=== PATIENT | male | born 1950 | race African-American/Black ===

== ENCOUNTER 2018-05-29 09:47 | Outpatient (CLI) | payer MEDICARE | END 2018-05-29 09:48 | disposition home or self-care (01) | LOC: BICULT 09:47 | PROVIDERS: ATTEND Family Medicine | DX: F17.210 Nicotine dependence, cigarettes, uncomplicated (principal); I10 Essential (primary) hypertension; R91.1 Solitary pulmonary nodule | CPT/HCPCS: 76775; G0297 ==

== ENCOUNTER 2018-11-15 10:46 | Inpatient (IN) | payer MEDICARE ==
[2018-11-15 11:57] LABS: Bilirubin Moderate (Negative); Blood, Urine Negative (Negative); Clarity CLEAR (Clear); Glucose, Urine (Dipstick) >=1000 mg/dL (Negative); Leukocyte Negative (Negative); Nitrite Negative (Negative); Protein, Urine (Dipstick) Trace mg/dL (Neg-Trace); Specific Gravity, Urine 1.019 (1.002-1.036)
[2018-11-15 12:06] LABS: #Eosinphils 0.1 thou/uL (0.0-0.7); #Lymphocytes 1.3 thou/uL (1.20-3.40); #Monocytes 0.4 thou/uL (0.11-0.59); #Neutrophils 4.1 thou/uL (1.40-6.50); %Basophils 0.5 % (0.0-1.0); %Eosinophils 1.6 % (0.0-10.0); %Lymphocytes 22.2 % (21.0-51.0); %Monocytes 7.1 % (0.0-10.0); %Neutrophils 68.6 % (42.0-75.0); ALT (SGPT) 7 U/L (8-55); AST (SGOT) 11 U/L (5-34); Albumin 3.9 g/dL (3.4-4.8); Alkaline Phosphatase 95 U/L (40-150); Anion Gap 19 mmol/L (10-20); Bilirubin, Total 0.9 mg/dL (0.2-1.2); CK (CPK) 77 U/L (30-200); Calc. Creatinine Clearance 0 mL/min (70-130); Carbon Dioxide 28 mmol/L (23-31); Estimated GFR-MDRD 13; Globulin 3.5 g/dL (2.4-3.5); Glucose 433 mg/dL (80-115); Hemoglobin 14.3 g/dL (14.0-18.0); Lipase 124 U/L (8-78); Mean Corpuscular HGB CONC 31.4 g/dL (32.0-36.0); Mean Corpuscular Hemoglobin 26.6 pg (27.0-31.0); Mean Corpuscular Volume 84.8 fL (78.0-98.0); Mean Platelet Volume 12.5 fL (7.4-10.4); Platelet Count 161 thou/uL (130-400); Protein, Total 7.4 g/dL (5.8-8.1); RBC Distribution Width 13.5 % (11.5-14.5); Red Blood Cell (RBC) Count 5.39 mill/uL (4.70-6.10); White Blood Cell (WBC) Count 5.9 thou/uL (4.8-10.8)
[2018-11-15 12:10] LABS: Hemoglobin A1c 21.2 % (4.0-6.0)
[2018-11-15 12:57] LABS: BUN (Urea Nitrogen) 85 mg/dL (8.4-25.7); Chloride 89 mmol/L (98-107); Sodium 132 mmol/L (136-145)
[2018-11-15] MEDS ORDERED: Insulin Regular 300 UNITS/3 ML VIAL ONE (13:10)
[2018-11-15] MEDS ORDERED: Dextrose 50% Abboject 50 ML SYRINGE SLOW IVP PRN (13:27)
[2018-11-15] MEDS ORDERED: Dextrose 5% in Water 1,000 ML IV PRN (13:27)
[2018-11-15] MEDS ORDERED: Acetaminophen 650 MG Suppository PR PRN (13:27)
[2018-11-15] MEDS ORDERED: Acetaminophen 325 MG TAB PO PRN (13:27)
--- NOTE | 2018-11-15 13:50 | RAD ---
UPRIGHT PORTABLE CHEST ONE VIEW: HISTORY: A 68-year-old male with a history of hyperglycemia. COMPARISON: 06/10/2015 FINDINGS: Monitor leads overly the chest. Heart size is within normal limits. Lungs are clear. No confluent pneumonia, overt edema, or pleural effusion. IMPRESSION: 1. No acute intrathoracic disease. 2. Stable from prior study. POS: [facility]
--- NOTE | 2018-11-15 13:53 | PDOC.FPRHP ---
- History of Present Illness Chief Complaint: abnormal lab values History of Present Illness: This is a 68 yo AA male presenting to the ED due to abnormal renal function results done at [facility] yesterday. This is a patient of Dr. Thomas. Patient states that he has been feeling well overall. He notes that he has been dizzy the last 1-2 days. He states when he gets up from sitting to standing he gets dizzy. It only lasts a few seconds at a time and then resolves. The patient also endorses increased frequency of urination, especially at night. Patient states he has been taking his medication as instructed but has not been checking his blood sugar regularly. Patient also states he has had a dry mouth sensation the last couple days. Patient endorses drinking only Aron-Aid and has not been drinking water regularly. Patient denies abdominal pain, chest pain, vision changes, NVD, or LE swelling. ED Course: 3L NS given, 16 units insulin - Allergies/Adverse Reactions Allergies Allergy/AdvReac Type Severity Reaction Status Date / Time codeine Allergy Verified 07/17/13 17:53 - Home Medications Medication Instructions Recorded Confirmed Type Amlodipine [Norvasc] 10 mg PO DAILY 07/19/13 11/15/18 History Aspirin [Aspirin Chewable] 81 mg PO DAILY 07/19/13 11/15/18 History Atenolol [Tenormin] 50 mg PO DAILY 11/15/18 11/15/18 History Atorvastatin Calcium 80 mg PO 11/15/18 History Lisinopril/Hydrochlorothiazide 1 tablet PO DAILY 11/15/18 11/15/18 History [Lisinopril-Hctz 20-25 mg Tab] - History PMHx: DMII, HLD, HTN PSHx: left hand and cheek surgery FHx: mother - DM, HTN; father - HTN; brother - heart issues Social: tobacco use - 1pack/week X 40 yrs, occasional alcohol use, denies drug use - Review of Systems General: denies: fever/chills, weight/appetite/sleep changes, night sweats, fatigue Eyes: denies: eye pain, vision changes ENT: denies: nasal congestion, rhinorrhea Respiratory: denies: cough, congestion, shortness of breath Cardiovascular: denies: chest pain, palpitation, edema Gastrointestinal: denies: nausea, vomiting, diarrhea, constipation, abdominal pain Genitourinary: reports: polyuria. denies: dysuria Skin: denies: rashes Musculoskeletal: denies: pain, tenderness, stiffness, swelling, arthritis/ arthralgias Neurological: reports: other (dizziness). denies: syncope, seizure, weakness - Vital signs BP: initially 79/48, now 109/61 HR: 47 RR: 15 Tmax: 98.5 Pox: 94% on RA Wt: 95.5kg - Physical Exam Constitutional: NAD, awake, alert and oriented, well developed HEENT: normocephalic and atraumatic, PERRLA, EOMI, grossly normal vision -HEENT: poor dentition, MM Dry Neck: supple, FROM, trachea midline, no LAD, no JVD Chest: no-tender to palpation, no lesions Heart: RRR, normal S1/S2, no murmurs/rubs/gallops, pulses present Lungs: CTAB, no respiratory distress, good air movement, no wheezing Abdomen: soft, non-tender, bowel sounds present, no masses/distention, no hernias Musculoskeletal: normal structure Neurological: no focal deficit Skin: no rash/lesions, capillary refill <2 seconds, no jaundice Psychiatric: normal mood and affect Additional comment: ZAID: enlarged prostate, no nodules, feces in rectal vault FMR H&P: Results - Labs Result Diagrams: 11/15/18 11:25 11/15/18 11:25 Lab results: WBC 5.9 thou/uL (4.8-10.8) 11/15/18 11:25 Hgb 14.3 g/dL (14.0-18.0) 11/15/18 11:25 Hct 45.7 % (42.0-52.0) 11/15/18 11:25 MCV 84.8 fL (78.0-98.0) 11/15/18 11:25 Plt Count 161 thou/uL (130-400) 11/15/18 11:25 Neutrophils % 68.6 % (42.0-75.0) 11/15/18 11:25 Sodium 132 mmol/L (136-145) L 11/15/18 11:25 Potassium 4.0 mmol/L (3.5-5.1) 11/15/18 11:25 Chloride 89 mmol/L (98-107) L 11/15/18 11:25 Carbon Dioxide 28 mmol/L (23-31) 11/15/18 11:25 BUN 85 mg/dL (8.4-25.7) H 11/15/18 11:25 Creatinine 5.51 mg/dL (0.7-1.3) H 11/15/18 11:25 Glucose 433 mg/dL (80-115) H 11/15/18 11:25 Calcium 10.0 mg/dL (7.8-10.44) 11/15/18 11:25 Total Bilirubin 0.9 mg/dL (0.2-1.2) 11/15/18 11:25 AST 11 U/L (5-34) 11/15/18 11:25 ALT 7 U/L (8-55) L 11/15/18 11:25 Alkaline Phosphatase 95 U/L (40-150) 11/15/18 11:25 Creatine Kinase 77 U/L (30-200) 11/15/18 11:25 C-Reactive Protein 1.00 mg/dL (= or < 0.5) H 11/15/18 11:25 Serum Total Protein 7.4 g/dL (5.8-8.1) 11/15/18 11:25 Albumin 3.9 g/dL (3.4-4.8) 11/15/18 11:25 Lipase 124 U/L (8-78) H 11/15/18 11:25 Urine Ketones Trace mg/dL (Negative) H 11/15/18 11:33 Urine Blood Negative (Negative) 11/15/18 11:33 Urine Nitrite Negative (Negative) 11/15/18 11:33 Ur Leukocyte Esterase Negative (Negative) 11/15/18 11:33 - EKG Interpretation EKG: sinus bradycardia - Radiology Interpretation Chest x-ray Status: report reviewed by me (no acute cardiopulm process) FMR H&P: A/P - Problem List (1) Hyperglycemia Current Visit: Yes Status: Acute Code(s): R73.9 - HYPERGLYCEMIA, UNSPECIFIED (2) Acute kidney injury Current Visit: Yes Status: Acute Code(s): N17.9 - ACUTE KIDNEY FAILURE, UNSPECIFIED (3) HTN (hypertension) Current Visit: Yes Status: Acute Code(s): I10 - ESSENTIAL (PRIMARY) HYPERTENSION (4) HLD (hyperlipidemia) Current Visit: Yes Status: Acute Code(s): E78.5 - HYPERLIPIDEMIA, UNSPECIFIED (5) Tobacco use Current Visit: Yes Status: Acute Code(s): Z72.0 - TOBACCO USE (6) Sinus bradycardia Current Visit: Yes Status: Acute Code(s): R00.1 - BRADYCARDIA, UNSPECIFIED - Plan Hyperglycemia, suspect HHS - Will obtain VBG - Anion gap 15; less than 16 so not in DKA, HHS suspected - will start insulin drip as patient's glucose did not go down after 10 units of insulin in the ED - Insulin ggt until below 250, then plan to start 70/30 here as that is what he will go home on. Start 30 in am and 15 in pm. - SSI prn when off of drip - glucose 503, will continue to monitor w/ accucheck q1hr - Diabetes education consulted - patient given 3 L boluses and will start mIVF DMII - A1C: 21.2 - Per records - in 04/2018: patient had A1C of 7.4 - see plan above Sinus Bradycardia - HR 47 in the ED, asymptomatic - EKG showed sinus bradycardia, no cardio consult at this time - Will continue to monitor - Hold beta eder HTN - hold beta eder, lisinopril/HCTZ - Will continue to monitor BP HLD - continue home meds Tobacco use - Smoking cessation counseling - nicotine patch DISPO: admit to medical, inpt CODE: FULL Case discussed with Dr. Abrams FMR H&P: Upper Level - Pertinent history 68 yo M here after being called by PCP and told to report to ED. He was seen yesterday in clinic and a random glucose was 400. A BMP was drawn which found a Cr over 5 up from less than 2.0 in March, thus he was told to come into the ER for further work up. A1c in April was 7.4 today in the ED it is 21.2. He noted that over the past few weeks urinary output has increased significantly. He also complains of increased thirst. His main PO liquid is aron aid which he has greatly increased his intake of over the past few weeks. He does not check his glucose at home, but states that he is compliant with his glipizide. - Pertinent findings ROS General: denies fever or chills CV: denies CP Resp: denies SOB Abd: denies abdominal pain : complains of increased UOP See internet marketing intern note for full ROS Laboratory Tests 11/15/18 11/15/18 11/15/18 11:25 11:25 11:25 Sodium 132 L Potassium 4.0 Chloride 89 L Carbon Dioxide 28 BUN 85 H Creatinine 5.51 H Estimated GFR (MDRD) 13 Glucose 433 H POC Glucose Hemoglobin A1c 21.2 H B-Hydroxybutyrate 2.05 H 11/15/18 13:03 Sodium Potassium Chloride Carbon Dioxide BUN Creatinine Estimated GFR (MDRD) Glucose POC Glucose 503 H Hemoglobin A1c B-Hydroxybutyrate PE General AO& x3 CV RRR no murmur Resp CTA bl Abd non tender Extremities no edema. pulses full and equal - Plan Date/Time: 11/15/18 1352 I, Felipe Hampton DO, have evaluated this patient and agree with findings/plan as outlined by internet marketing intern resident. Pertinent changes/additions are listed here. 1. Suspected HHS - s/p 2L NS bolus in ED. Will bolus 1 more then start IVF at maintenance - serum osm pending - Insulin ggt until below 250, then plan to start 70/30 here as that is what he will go home on. Start 30 in am and 15 in pm. - SSI prn when off of drip - low carb diet - Accucheck q1 until below 250 then ACHS - DM education - admit to medical floor 2. DM2 - as above 3. Sinus bradycardia - hold beta eder, currently asymptomatic - no block on EKG 4. HTN - home meds 5. HLD - home statin Dispo: stable. It will likely take 48-72 hours to control glucose and set a insulin regimen. Addendum - Attending - Attending Attestation Date/Time: 11/15/18 0131 I personally evaluated the patient and discussed the management with Dr. Wynne I agree with the History, Examination, Assessment and Plan documented above with any addition or exceptions noted below- 68 yo male with h/o type 2 DM, HTN , HLD sent to ER due to abnormal labs. Found to be hyperglycemia with YH=811 and Cr=5.19. Patient endorses polyuria, polydipsia. Denies any CP, SOB, abd pain , N/V. PMH/PSH/Meds/All reviewed and agree with resident's documentation. Afebrile VSS. Exam repeated by me and agree with resident's findings. Labs: WBC= 5.9, H/H=14.3/45.7, Dcy=509, Ct=355, K=4.0, Cl=89, CO2=28, BUN/Cr=85/5.51, gluc= 433, AST/ALT=11/7, serum ketone=2.05, ErzZ7t=46.2, CRP=1.0. EKG- sinus bradycardia. A/P: 1) HHS- Admit to IMCU; continue insulin drip and q1 hour accuchecks. 2) JORY - continue IV hydration. Monitor electrolytes. 3) Urinary frequency - enlarged prostate; consider flomax as outpatient. 4) Hypotension- responding to fluid bolus. Continue to monitor. 5) Bradycardia- hold beta eder.
[2018-11-15] MEDS ORDERED: Lactated Ringer's 1,000 ML IV SCH (14:15)
[2018-11-15] MEDS ORDERED: Dextrose 5 %-0.45 % NaCl 1,000 ML IV PRN (15:10)
[2018-11-15] MEDS ORDERED: CCU Electrolyte Replacement 1 EACH IVPB ONE (15:10)
[2018-11-15] MEDS ORDERED: NS 0.9% w/ 20 MEQ KCL 1,000 ML IV PRN ×2 (15:10)
[2018-11-15] MEDS ORDERED: D5 1/2 NS w/20 mEq KCL 1,000 ML IV PRN (15:10)
[2018-11-15] MEDS ORDERED: Sodium Chloride 0.9% 1,000 ML IV PRN ×4 (15:10)
[2018-11-15] MEDS ORDERED: Potassium Chloride 40 MEQ in Premix Bag 1 BAG IVPB PRN (15:51)
[2018-11-15] MEDS ORDERED: Potassium Phosphate 12 MMOL in Sodium Chloride 0.9% 250 ML 250 ML IV PRN (15:51)
[2018-11-15] MEDS ORDERED: Magnesium 2 GM/NS 0.9% 100 ML 2 GM in Premix Bag 1 BAG IVPB PRN (15:51)
[2018-11-15] MEDS ORDERED: Potassium Chloride 40 MEQ in Sodium Chloride 0.9% 250 ML 250 ML IVPB PRN (15:51)
[2018-11-15] MEDS ORDERED: Potassium Chloride 20 MEQ TAB PO PRN (15:51)
[2018-11-15] MEDS ORDERED: Magnesium Oxide 400 MG TAB PO PRN ×2 (15:51)
[2018-11-15] MEDS ORDERED: Potassium Phosphate 15 MMOL in Sodium Chloride 0.9% 250 ML 250 ML IV PRN (15:51)
[2018-11-15] MEDS ORDERED: CCU ELECTROLYTE REPLACEMENT PROTOCOL FS PRN (15:51)
[2018-11-15] MEDS ORDERED: Potassium Phosphate 9 MMOL in Sodium Chloride 0.9% 100 ML IVPB PRN (15:51)
[2018-11-15 18:34] VITALS: BMI 27.6
[2018-11-15 19:55] LABS: Anion Gap 17 mmol/L (10-20); BUN (Urea Nitrogen) 72 mg/dL (8.4-25.7); Calc. Creatinine Clearance 20 mL/min (70-130); Calcium 9.3 mg/dL (7.8-10.44); Carbon Dioxide 27 mmol/L (23-31); Chloride 95 mmol/L (98-107); Estimated GFR-MDRD 15; Glucose 330 mg/dL (80-115); Potassium 3.6 mmol/L (3.5-5.1); Sodium 135 mmol/L (136-145)
[2018-11-15] MEDS: Nicotine 21 MG PATCH TD SCH (20:46)
[2018-11-15] MEDS ORDERED: Insulin NPH/Reg Insulin Hm 300 UNITS/3 ML VIAL SC SCH ×2 (21:00→21:15)
[2018-11-15] MEDS: Potassium Chloride 20 MEQ in Lactated Ringer's 1,000 ML IV SCH (21:21)
[2018-11-15 23:31] LABS: Anion Gap 13 mmol/L (10-20); BUN (Urea Nitrogen) 69 mg/dL (8.4-25.7); Calc. Creatinine Clearance 23 mL/min (70-130); Calcium 9.5 mg/dL (7.8-10.44); Carbon Dioxide 29 mmol/L (23-31); Chloride 97 mmol/L (98-107); Estimated GFR-MDRD 17; Glucose 84 mg/dL (80-115); Potassium 3.4 mmol/L (3.5-5.1); Sodium 136 mmol/L (136-145)
[2018-11-16] MEDS: Potassium Chloride 20 MEQ in Lactated Ringer's 1,000 ML IV SCH ×2 (05:15→10:20)
[2018-11-16 05:38] LABS: Band 1 % (5-11); Hemoglobin 12.7 g/dL (14.0-18.0); Hypochromia SLIGHT = 6-15 cells (100X) (0-5/hpf); Lymphocytes 21 % (21-51); MDiff Complete? YES; Mean Corpuscular HGB CONC 32.3 g/dL (32.0-36.0); Mean Corpuscular Hemoglobin 27.3 pg (27.0-31.0); Mean Corpuscular Volume 84.4 fL (78.0-98.0); Mean Platelet Volume 13.1 fL (7.4-10.4); Monocytes 3 % (0-10); Neutrophil 75 % (42-75); PLT Morphology Comment Appears Adequate; Platelet Count 136 thou/uL (130-400); RBC Distribution Width 13.3 % (11.5-14.5); Red Blood Cell (RBC) Count 4.66 mill/uL (4.70-6.10); White Blood Cell (WBC) Count 6.3 thou/uL (4.8-10.8)
[2018-11-16 05:41] LABS: Anion Gap 16 mmol/L (10-20); BUN (Urea Nitrogen) 65 mg/dL (8.4-25.7); Calc. Creatinine Clearance 25 mL/min (70-130); Calcium 9.5 mg/dL (7.8-10.44); Carbon Dioxide 27 mmol/L (23-31); Chloride 99 mmol/L (98-107); Estimated GFR-MDRD 19; Glucose 115 mg/dL (80-115); Potassium 3.8 mmol/L (3.5-5.1); Sodium 138 mmol/L (136-145)
--- NOTE | 2018-11-16 06:10 | PDOC.FM ---
- Subjective Subjective: No events overnight. Patient states he feels well this morning. No complaints or concerns. Patient tolerated his diet well. - Objective Vital Signs & Weight: Vital Signs (12 hours) Temp Pulse Resp BP Pulse Ox 11/16/18 04:00 97.0 F L 42 L 12 94/57 L 98 11/16/18 00:00 97.6 F 44 L 14 97/52 L 98 11/15/18 20:00 98 11/15/18 19:40 97.9 F 54 L 12 112/59 L 98 Weight Weight 94.943 kg I&O: 11/14/18 11/15/18 11/16/18 06:59 06:59 06:59 Intake Total 1900 Output Total 1360 Balance 540 Result Diagrams: 11/16/18 04:47 11/16/18 04:47 Phys Exam - Physical Examination Constitutional: NAD HEENT: PERRLA, moist MMs, sclera anicteric Neck: no JVD, supple, full ROM Respiratory: clear to auscultation bilateral Cardiovascular: RRR, no significant murmur, no rub Gastrointestinal: soft, non-tender, no distention, positive bowel sounds Musculoskeletal: no edema Neurological: non-focal Psychiatric: normal affect, A&O x 3 Skin: no rash Dx/Plan (1) Hyperglycemia Code(s): R73.9 - HYPERGLYCEMIA, UNSPECIFIED Status: Acute (2) Acute kidney injury Code(s): N17.9 - ACUTE KIDNEY FAILURE, UNSPECIFIED Status: Acute (3) HTN (hypertension) Code(s): I10 - ESSENTIAL (PRIMARY) HYPERTENSION Status: Acute (4) HLD (hyperlipidemia) Code(s): E78.5 - HYPERLIPIDEMIA, UNSPECIFIED Status: Acute (5) Tobacco use Code(s): Z72.0 - TOBACCO USE Status: Acute (6) Sinus bradycardia Code(s): R00.1 - BRADYCARDIA, UNSPECIFIED Status: Acute - Plan Plan: Hyperglycemia, suspect HHS - Anion gap 15; less than 16 so not in DKA, HHS suspected - glucose 503-> 122 - will continue to monitor; will start insulin 70/30. Will start 30 in AM and 15 in PM; will adjust as needed - aggressive SSI - Diabetes education consulted - continue mIVF JORY - BUN/Cr on admission: 85/5.51 - 12/28: BUN/Cr: 65/3.81 - continue mIVF - Will obtain urine studies and cx; will consider renal US and consulting nephrology is no improvement DMII - A1C: 21.2 - Per records - in 04/2018: patient had A1C of 7.4 - see plan above Sinus Bradycardia - HR 47 in the ED, asymptomatic - EKG showed sinus bradycardia, no cardio consult at this time - Will continue to monitor - Hold beta eder HTN - hold beta eder, lisinopril/HCTZ - Will continue to monitor BP HLD - continue home meds Tobacco use - Smoking cessation counseling - nicotine patch DISPO: continue to monitor glucose; likely discharge in 1-2 days CODE: FULL Addendum - Attending - Attending Attestation Date/Time: 11/16/18 8077 I personally evaluated the patient and discussed the management with Dr. Wynne I agree with the History, Examination, Assessment and Plan documented above with any addition or exceptions noted below- Patient without complaints. Afebrile VSS. A/P: 1) HHS- resolved; off insulin drip and started on SQ insulin. Diabetic education today. Transfer to floor. 2) JORY- improving; continue IVF; recheck in AM. 3) Bradycardia- asymptomatic; continue to hold beta eder.
[2018-11-16 08:54] LABS: Magnesium 2.2 mg/dL (1.6-2.6); Phosphorus 2.7 mg/dL (2.3-4.7)
[2018-11-16] MEDS ORDERED: Insulin NPH/Reg Insulin Hm 300 UNITS/3 ML VIAL SC SCH (09:00)
[2018-11-16] MEDS: Insulin NPH/Reg Insulin Hm 300 UNITS/3 ML VIAL SC SCH ×2 (10:11→20:09)
[2018-11-16] MEDS: Heparin 5,000 UNITS/ML VIAL SC SCH ×3 (10:15→20:10)
[2018-11-16 10:42] LABS: Creatinine, Urine 215.2 mg/dL (63-166)
[2018-11-16] MEDS ORDERED: Sodium Chloride 0.9% 1,000 ML IV SCH (10:45)
[2018-11-16] MEDS: Furosemide 20 MG/2 ML VIAL SLOW IVP SCH ×2 (10:52→11:08)
[2018-11-16] MEDS: HumaLOG 300 UNITS/3 ML VIAL SC PRN ×2 (11:44→17:13)
--- NOTE | 2018-11-16 13:48 | ULT ---
BILATERAL RENAL ULTRASOUND COMPLETE: History: 68-year-old male with history of worsening renal function. FINDINGS: Right kidney measures 11.2 x 4.6 x 4.3 cm. The left kidney is a pelvic kidney, low lying, measuring 9 .5 x 4.6 x 3.8 cm. No evidence for renal hydronephrosis. Both renal cortices appear to be somewhat di ffusely echogenic, possible nonspecific chronic renal disease. Unremarkable appearing bladder. No per inephric process. IMPRESSION: Increased diffuse renal cortical echogenicity evidence for nonspecific chronic renal disease. No rayna l hydronephrosis. POS: [facility]
[2018-11-16] MEDS: Nicotine 21 MG PATCH TD SCH (20:09)
--- NOTE | 2018-11-17 06:14 | PDOC.FM ---
- Subjective Subjective: No events overnight. Patient reports feeling well this morning. Patient has been tolerating PO well. Patient talked with diabetes education yesterday and acknowledges understanding. States he is going to perform his own accuchecks and administer insulin today as he is ready to go home. - Objective Vital Signs & Weight: Vital Signs (12 hours) Temp Pulse Resp BP Pulse Ox 11/16/18 20:00 98.6 F 49 L 16 99/60 92 L Weight Weight 95.164 kg I&O: 11/15/18 11/16/18 11/17/18 06:59 06:59 06:59 Intake Total 2180 Output Total 1760 450 Balance 420 -450 Result Diagrams: 11/17/18 07:24 11/17/18 07:24 Phys Exam - Physical Examination Constitutional: NAD HEENT: PERRLA, moist MMs, sclera anicteric Neck: no JVD, supple, full ROM Respiratory: clear to auscultation bilateral Cardiovascular: RRR, no significant murmur, no rub Gastrointestinal: soft, non-tender, no distention, positive bowel sounds Musculoskeletal: no edema Neurological: non-focal Psychiatric: normal affect Skin: no rash Dx/Plan (1) Hyperglycemia Code(s): R73.9 - HYPERGLYCEMIA, UNSPECIFIED Status: Acute (2) Acute kidney injury Code(s): N17.9 - ACUTE KIDNEY FAILURE, UNSPECIFIED Status: Acute (3) HTN (hypertension) Code(s): I10 - ESSENTIAL (PRIMARY) HYPERTENSION Status: Acute (4) HLD (hyperlipidemia) Code(s): E78.5 - HYPERLIPIDEMIA, UNSPECIFIED Status: Acute (5) Tobacco use Code(s): Z72.0 - TOBACCO USE Status: Acute (6) Sinus bradycardia Code(s): R00.1 - BRADYCARDIA, UNSPECIFIED Status: Acute - Plan Plan: Hyperglycemia, suspect HHS - Anion gap 15 on admission, ketones present, elevated BHB - glucose 503 on admission. Glucose now ranging 89-215 over last 24 hours - will continue to monitor; started insulin 70/30 on 11/16. 30 in AM and 15 in PM ; 3 units SS - will keep 70/30 dosage for now and will adjust as necessary. Will make sure patient administers his own insulin and does his own accuchecks throughout the day today in preparation for discharge. - aggressive SSI - Diabetes education given to patient on 11/16 JORY - BUN/Cr on admission: 85/5.51 - 11/16: BUN/Cr: 65/3.81 - continue mIVF - Will obtain urine studies and cx; will consider renal US and consulting nephrology is no improvement DMII - A1C: 21.2 - Per records - in 04/2018: patient had A1C of 7.4 - see plan above Sinus Bradycardia - HR in upper 40s, remains asymptomatic - EKG showed sinus bradycardia, no cardio consult at this time - Will continue to monitor - Hold beta eder HTN - hold beta eder, lisinopril/HCTZ - Will continue to monitor BP HLD - continue home meds Tobacco use - Smoking cessation counseling - nicotine patch DISPO: continue to monitor glucose; likely discharge in 1-2 days CODE: FULL Addendum - Attending - Attending Attestation Date/Time: 11/17/18 4141 I personally evaluated the patient and discussed the management with Dr. Wynne I agree with the History, Examination, Assessment and Plan documented above with any addition or exceptions noted below.Continue IV fluid replacement and maximize inpatient diabetic educational opportunities for self injection. Discussed care plan with patient and sibling. Trend BMP for continued improvement RFT.
[2018-11-17 08:11] LABS: #Eosinphils 0.1 thou/uL (0.0-0.7); #Lymphocytes 1.3 thou/uL (1.20-3.40); #Monocytes 0.5 thou/uL (0.11-0.59); #Neutrophils 3.1 thou/uL (1.40-6.50); %Basophils 0.7 % (0.0-1.0); %Eosinophils 1.5 % (0.0-10.0); %Lymphocytes 26.2 % (21.0-51.0); %Monocytes 10.1 % (0.0-10.0); %Neutrophils 61.4 % (42.0-75.0); Hemoglobin 12.4 g/dL (14.0-18.0); Mean Corpuscular HGB CONC 32.1 g/dL (32.0-36.0); Mean Corpuscular Hemoglobin 27.3 pg (27.0-31.0); Mean Corpuscular Volume 85.1 fL (78.0-98.0); Mean Platelet Volume 12.7 fL (7.4-10.4); Platelet Count 130 thou/uL (130-400); RBC Distribution Width 13.1 % (11.5-14.5); Red Blood Cell (RBC) Count 4.53 mill/uL (4.70-6.10)
[2018-11-17 08:25] LABS: Anion Gap 14 mmol/L (10-20); BUN (Urea Nitrogen) 47 mg/dL (8.4-25.7); Calc. Creatinine Clearance 34 mL/min (70-130); Calcium 9.5 mg/dL (7.8-10.44); Carbon Dioxide 25 mmol/L (23-31); Chloride 100 mmol/L (98-107); Estimated GFR-MDRD 28; Glucose 88 mg/dL (80-115); Potassium 3.4 mmol/L (3.5-5.1); Sodium 136 mmol/L (136-145)
[2018-11-17] MEDS: Heparin 5,000 UNITS/ML VIAL SC SCH ×3 (09:31→20:37)
[2018-11-17] MEDS: Insulin NPH/Reg Insulin Hm 300 UNITS/3 ML VIAL SC SCH ×2 (09:32→20:38)
[2018-11-17] MEDS: Lactated Ringer's 1,000 ML IV SCH (11:23)
[2018-11-17] MEDS ORDERED: Potassium Chloride 20 MEQ TAB PO SCH (15:15)
[2018-11-17] MEDS: HumaLOG 300 UNITS/3 ML VIAL SC PRN (17:30)
[2018-11-17] MEDS: Nicotine 21 MG PATCH TD SCH (20:38)
[2018-11-18] MEDS: Lactated Ringer's 1,000 ML IV SCH ×4 (00:56→21:01)
[2018-11-18 06:33] LABS: #Eosinphils 0.1 thou/uL (0.0-0.7); #Lymphocytes 1.6 thou/uL (1.20-3.40); #Monocytes 0.6 thou/uL (0.11-0.59); #Neutrophils 2.7 thou/uL (1.40-6.50); %Basophils 0.4 % (0.0-1.0); %Eosinophils 2.1 % (0.0-10.0); %Lymphocytes 31.7 % (21.0-51.0); %Monocytes 11.4 % (0.0-10.0); %Neutrophils 54.4 % (42.0-75.0); Hemoglobin 11.6 g/dL (14.0-18.0); Mean Corpuscular HGB CONC 31.6 g/dL (32.0-36.0); Mean Corpuscular Hemoglobin 26.8 pg (27.0-31.0); Mean Corpuscular Volume 84.8 fL (78.0-98.0); Platelet Count 124 thou/uL (130-400); RBC Distribution Width 13.1 % (11.5-14.5); Red Blood Cell (RBC) Count 4.34 mill/uL (4.70-6.10)
--- NOTE | 2018-11-18 06:38 | PDOC.FM ---
- Subjective Subjective: No overnight events. Patient resting comfortably in bed. Patient states he feels well and is ready for discharge. He states he feels comfortable doing accuchecks and administering insulin. - Objective Vital Signs & Weight: Vital Signs (12 hours) Temp Pulse Resp BP Pulse Ox 11/17/18 20:35 96 11/17/18 19:30 98.7 F 55 L 18 107/66 96 Weight Weight 96.57 kg I&O: 11/16/18 11/17/18 11/18/18 06:59 06:59 06:59 Intake Total 2180 2805 Output Total 1760 450 650 Balance 420 -450 2155 Result Diagrams: 11/18/18 05:59 11/18/18 05:59 Phys Exam - Physical Examination Constitutional: NAD HEENT: PERRLA, moist MMs, sclera anicteric Neck: supple, full ROM Respiratory: clear to auscultation bilateral Cardiovascular: RRR Gastrointestinal: soft, non-tender, no distention, positive bowel sounds Musculoskeletal: no edema Neurological: non-focal Psychiatric: normal affect, A&O x 3 Skin: no rash Dx/Plan (1) Hyperglycemia Code(s): R73.9 - HYPERGLYCEMIA, UNSPECIFIED Status: Acute (2) Acute kidney injury Code(s): N17.9 - ACUTE KIDNEY FAILURE, UNSPECIFIED Status: Acute (3) HTN (hypertension) Code(s): I10 - ESSENTIAL (PRIMARY) HYPERTENSION Status: Acute (4) HLD (hyperlipidemia) Code(s): E78.5 - HYPERLIPIDEMIA, UNSPECIFIED Status: Acute (5) Tobacco use Code(s): Z72.0 - TOBACCO USE Status: Acute (6) Sinus bradycardia Code(s): R00.1 - BRADYCARDIA, UNSPECIFIED Status: Acute - Plan Plan: Hyperglycemia, suspect HHS - Anion gap 15 on admission, ketones present, elevated BHB - glucose 503 on admission. Glucose now ranging 89-215 over last 24 hours - will continue to monitor; started insulin 70/30 on 11/16. 30 in AM and 15 in PM - Patient states he is comfortable doing accuchecks and administering insulin. Will continue to education throughout his stay to make sure he is able to perform on his own at home. - aggressive SSI - 3 u given on 11/17 - Diabetes education given to patient on 11/16 JORY, improved - BUN/Cr on admission: 85/5.51 - 11/16: BUN/Cr: 65/3.81; 11/18: BUN/Cr 34/2.55 - continue mIVF to aid in improving renal fxn - renal us nml DMII - A1C: 21.2 - Per records - in 04/2018: patient had A1C of 7.4 - see plan above Sinus Bradycardia - HR in upper 40s- mid 50s, remains asymptomatic - EKG showed sinus bradycardia in ED, no cardio consult at this time - Will continue to monitor - Hold beta eder HTN - hold beta eder, lisinopril/HCTZ - Will continue to monitor BP. BP has remained in a normal range since admission. HLD - continue home meds Tobacco use - Smoking cessation counseling - nicotine patch DISPO: continue to monitor glucose; likely discharge tomorrow as kidney fxn still not at baseline CODE: FULL Addendum - Attending - Attending Attestation Date/Time: 11/18/18 2513 I personally evaluated the patient and discussed the management with Dr. Wynne I agree with the History, Examination, Assessment and Plan documented above with any addition or exceptions noted below.Continue hydration and teaching in controlled environment.
[2018-11-18 06:50] LABS: Anion Gap 13 mmol/L (10-20); BUN (Urea Nitrogen) 34 mg/dL (8.4-25.7); Calc. Creatinine Clearance 38 mL/min (70-130); Calcium 9.4 mg/dL (7.8-10.44); Carbon Dioxide 28 mmol/L (23-31); Chloride 101 mmol/L (98-107); Estimated GFR-MDRD 31; Glucose 104 mg/dL (80-115); Potassium 3.6 mmol/L (3.5-5.1); Sodium 138 mmol/L (136-145)
[2018-11-18] MEDS: Insulin NPH/Reg Insulin Hm 300 UNITS/3 ML VIAL SC SCH ×2 (09:17→20:54)
[2018-11-18] MEDS: Heparin 5,000 UNITS/ML VIAL SC SCH ×3 (09:17→20:54)
[2018-11-18] MEDS: HumaLOG 300 UNITS/3 ML VIAL SC PRN (12:55)
[2018-11-18] MEDS: Nicotine 21 MG PATCH TD SCH (20:54)
[2018-11-18] MEDS: Atorvastatin Calcium 40 MG TAB PO SCH (20:54)
--- NOTE | 2018-11-19 07:06 | PDOC.FM ---
- Subjective Subjective: No events overnight. Patient states he is feeling comfortable doing accuchecks and administering insulin. Patient able to state how many units he gets in the morning and night. Patient denies any symptoms at this time and no complaints or concerns. - Objective Vital Signs & Weight: Vital Signs (12 hours) Temp Pulse Resp BP 11/18/18 20:00 98.3 F 50 L 18 128/70 Weight Weight 96.57 kg I&O: 11/18/18 11/19/18 11/20/18 06:59 06:59 06:59 Intake Total 2805 2200 Output Total 650 300 Balance 2155 1900 Result Diagrams: 11/18/18 05:59 11/19/18 07:23 Phys Exam - Physical Examination Constitutional: NAD HEENT: PERRLA, moist MMs, sclera anicteric Neck: full ROM Respiratory: clear to auscultation bilateral Cardiovascular: RRR, no significant murmur, no rub Gastrointestinal: soft, non-tender, no distention, positive bowel sounds Musculoskeletal: no edema Neurological: non-focal, moves all 4 limbs Psychiatric: normal affect, A&O x 3 Skin: no rash Dx/Plan (1) Hyperglycemia Code(s): R73.9 - HYPERGLYCEMIA, UNSPECIFIED Status: Acute (2) Acute kidney injury Code(s): N17.9 - ACUTE KIDNEY FAILURE, UNSPECIFIED Status: Acute (3) HTN (hypertension) Code(s): I10 - ESSENTIAL (PRIMARY) HYPERTENSION Status: Acute (4) HLD (hyperlipidemia) Code(s): E78.5 - HYPERLIPIDEMIA, UNSPECIFIED Status: Acute (5) Tobacco use Code(s): Z72.0 - TOBACCO USE Status: Acute (6) Sinus bradycardia Code(s): R00.1 - BRADYCARDIA, UNSPECIFIED Status: Acute - Plan Plan: Hyperglycemia, suspect HHS - Anion gap 15 on admission, ketones present, elevated BHB - glucose 503 on admission. Glucose now ranging 89-215 over last 24 hours - will continue to monitor; started insulin 70/30 on 11/16. 32 units in the AM and 16 units PM - Patient states he is comfortable doing accuchecks and administering insulin. Will continue to education throughout his stay to make sure he is able to perform on his own at home. Per nurse, patient is slowly understanding but still requiring prompting and re-education. CM consulted to set up for medication administration. - aggressive SSI - Diabetes education given to patient on 11/16, will continue JORY, improved - BUN/Cr on admission: 85/5.51 - 11/16: BUN/Cr: 65/3.81; 11/18: BUN/Cr 34/2.55; 11/19: BUN/Cr 21/2.11 - continue mIVF to aid in improving renal fxn - renal us nml DMII - A1C: 21.2 - Per records - in 04/2018: patient had A1C of 7.4 - see plan above Sinus Bradycardia - HR in upper 40s- mid 50s, remains asymptomatic - EKG showed sinus bradycardia in ED, no cardio consult at this time - Will continue to monitor - Hold beta eder HTN - hold beta eder, lisinopril/HCTZ - Will continue to monitor BP. BP has remained in a normal range since admission. HLD - continue home meds Tobacco use - Smoking cessation counseling - nicotine patch DISPO: continue to monitor glucose; likely discharge tomorrow as kidney fxn still not at baseline CODE: FULL Addendum - Attending - Attending Attestation Date/Time: 11/19/18 1207 I personally evaluated the patient and discussed the management with Dr. Wynne I agree with the History, Examination, Assessment and Plan documented above with any addition or exceptions noted below. Continue hydration sholud be reaching [facility].
[2018-11-19 08:01] LABS: Anion Gap 13 mmol/L (10-20); BUN (Urea Nitrogen) 21 mg/dL (8.4-25.7); Calc. Creatinine Clearance 46 mL/min (70-130); Calcium 9.7 mg/dL (7.8-10.44); Carbon Dioxide 24 mmol/L (23-31); Chloride 103 mmol/L (98-107); Estimated GFR-MDRD 38; Glucose 127 mg/dL (80-115); Sodium 136 mmol/L (136-145)
[2018-11-19] MEDS: Lactated Ringer's 1,000 ML IV SCH ×2 (08:05→14:37)
[2018-11-19] MEDS: Insulin NPH/Reg Insulin Hm 300 UNITS/3 ML VIAL SC SCH (08:06)
[2018-11-19] MEDS: Heparin 5,000 UNITS/ML VIAL SC SCH ×3 (09:40→21:18)
[2018-11-19] MEDS: HumaLOG 300 UNITS/3 ML VIAL SC PRN ×2 (11:47→17:44)
[2018-11-19] MEDS: Nicotine 21 MG PATCH TD SCH (17:50)
[2018-11-19] MEDS ORDERED: Insulin NPH/Reg Insulin Hm 300 UNITS/3 ML VIAL SC SCH (21:00)
[2018-11-19] MEDS: Atorvastatin Calcium 40 MG TAB PO SCH (21:14)
[2018-11-20] MEDS: Lactated Ringer's 1,000 ML IV SCH ×2 (00:58→07:46)
--- NOTE | 2018-11-20 07:08 | PDOC.FM ---
- Subjective Subjective: No events overnight. Patient reports doing well and is ready for discharge. States he is finally feeling comfortable with insulin regimen and is ready to do himself at home. States he has his sister nearby to help with him if he has questions or needs assistance with medications. - Objective Vital Signs & Weight: Vital Signs (12 hours) Temp Pulse Resp BP Pulse Ox 11/19/18 21:39 96 11/19/18 20:42 99 F 52 L 16 147/73 H 96 Weight Weight 99.564 kg I&O: 11/19/18 11/20/18 11/21/18 06:59 06:59 06:59 Intake Total 2200 3294 Output Total 300 Balance 1900 3294 Result Diagrams: 11/18/18 05:59 11/20/18 07:15 Phys Exam - Physical Examination Constitutional: NAD HEENT: PERRLA, moist MMs, sclera anicteric Neck: full ROM Respiratory: clear to auscultation bilateral Cardiovascular: RRR Gastrointestinal: soft, no distention Musculoskeletal: no edema Neurological: non-focal, moves all 4 limbs Psychiatric: normal affect, A&O x 3 Skin: no rash Dx/Plan (1) Hyperglycemia Code(s): R73.9 - HYPERGLYCEMIA, UNSPECIFIED Status: Acute (2) Acute kidney injury Code(s): N17.9 - ACUTE KIDNEY FAILURE, UNSPECIFIED Status: Acute (3) HTN (hypertension) Code(s): I10 - ESSENTIAL (PRIMARY) HYPERTENSION Status: Acute (4) HLD (hyperlipidemia) Code(s): E78.5 - HYPERLIPIDEMIA, UNSPECIFIED Status: Acute (5) Tobacco use Code(s): Z72.0 - TOBACCO USE Status: Acute (6) Sinus bradycardia Code(s): R00.1 - BRADYCARDIA, UNSPECIFIED Status: Acute - Plan Plan: Hyperglycemia, suspect HHS - Anion gap 15 on admission, ketones present, elevated BHB - glucose 503 on admission. Glucose now ranging 89-215 over last 24 hours - will continue to monitor; started insulin 70/30 on 11/16. 32 units in the AM and 16 units PM - Patient states he is finally comfortable doing accuchecks and administering insulin after nursing and diabetes education over the past few days. Will give patient handout on when to take glucose measurement and how many units of insulin to administer. CM consulted to help set up patient with HH for medication administration. Patient states his sister does live nearby who could help him with any questions or if he needed assistance with medications. 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 JORY, improved - BUN/Cr on admission: 85/5.51 - 11/16: BUN/Cr: 65/3.81; 11/18: BUN/Cr 34/2.55; 11/19: BUN/Cr 21/2.11; 11/20/18 BUN/Cr: 14/1.91 - dc fluid - renal us nml DMII - A1C: 21.2 - Per records - in 04/2018: patient had A1C of 7.4 - see plan above Sinus Bradycardia - HR now in 50-60s - Will continue to monitor - Hold beta eder upon dc HTN - hold beta eder, lisinopril/HCTZ - Will continue to monitor BP. BP has remained in a normal range since admission. HLD - continue home meds Tobacco use - Smoking cessation counseling - nicotine patch DISPO: likely discharge today as kidney fxn back to baseline and patient now has better understanding of accuchecks and insulin administration. CODE: FULL Addendum - Attending - Attending Attestation Date/Time: 11/20/18 0131 I personally evaluated the patient and discussed the management with Dr. Wynne I agree with the History, Examination, Assessment and Plan documented above with any addition or exceptions noted below.
[2018-11-20] MEDS: Heparin 5,000 UNITS/ML VIAL SC SCH (07:34)
[2018-11-20 07:56] LABS: Anion Gap 13 mmol/L (10-20); BUN (Urea Nitrogen) 14 mg/dL (8.4-25.7); Calc. Creatinine Clearance 53 mL/min (70-130); Calcium 9.4 mg/dL (7.8-10.44); Carbon Dioxide 24 mmol/L (23-31); Chloride 105 mmol/L (98-107); Estimated GFR-MDRD 43; Glucose 131 mg/dL (80-115); Potassium 3.9 mmol/L (3.5-5.1); Sodium 138 mmol/L (136-145)
[2018-11-20] MEDS ORDERED: Amlodipine 5 MG TAB PO SCH (09:00)
[2018-11-20] MEDS ORDERED: Insulin NPH/Reg Insulin Hm 300 UNITS/3 ML VIAL SC SCH (09:00)
[2018-11-20 11:39] VITALS: BP 147/83; TEMP 98.7
[2018-11-20] MEDS ORDERED: Nicotine 21 MG PATCH TD SCH (18:00)
--- NOTE | 2018-11-21 11:51 | DIS ---
DATE OF ADMISSION: 11/15/2018 DATE OF DISCHARGE: 11/20/2018 RESIDENT: Kim Wynne MD ADMITTING ATTENDING: Shirley Abrams MD DISCHARGE ATTENDING: Castro Umana MD CONSULT: Case Management. PROCEDURES: None. PRIMARY DIAGNOSES: 1. Hyperglycemia. 2. Hyperosmolar hyperglycemic state. 3. Diabetes, type 2. 4. Sinus bradycardia. SECONDARY DIAGNOSES: 1. Hypertension. 2. Hyperlipidemia. 3. Tobacco use. DISCHARGE MEDICATIONS: 1. Humulin 70/30 of 16 units every evening. 2. Humulin 70/30 of 32 units every morning. 3. Norvasc 5 mg oral daily. 4. Aspirin 81 mg oral daily. 5. Atorvastatin 80 mg oral at bedtime. Discontinued medications: 1. Norvasc 10 mg oral daily. 2. Atenolol 50 mg oral daily. 3. Lisinopril/hydrochlorothiazide one tablet oral daily. HISTORY OF PRESENT ILLNESS/HOSPITAL COURSE: This is a 68-year-old male who presented to the emergency department due to abnormal renal function test results done at the [facility]. The patient was found to have a hemoglobin A1c of 21.2 and a glucose of 503. The patient noted that he admits to feeling dizzy the last 1 to 2 days. The patient also endorsed increased frequency of urination, especially at night. The patient states that he had been taking his medication as instructed, but had not been checking his blood sugar regularly. The patient states that he had been drinking [employer] and had not been drinking water regularly. The patient was given 3 L of normal saline and insulin in the ED. The patient was suspected to be in HHS. The patient had an anion gap of 15. The patient was started on an insulin drip. When the patient's sugar was below 250, the patient was started on 70/30. The patient was seen by diabetes education. The patient was given maintenance IV fluids if he was clinically lying down on exam. Due to the patient's borderline intelligence, it took several days of reinforcement and education on how to administer insulin and do the Accu-Cheks on his own. On arrival to the emergency department, the patient was also found to have a heart rate in the 40s. The patient was asymptomatic at that time. An EKG showed sinus bradycardia. The patient's beta-eder was held. On the day of discharge, the patient's heart rate had increased to the 50s and 60s. The patient was also found to have a low blood pressure on arrival to the ED and his lisinopril/hydrochlorothiazide was held. On the day of discharge, the patient's blood pressure had increased to the 140s to 150s over 70s to 80s, and the patient was started on amlodipine. On arrival, the patient's BUN and creatinine were found to be 85/5.51. On the day of discharge, the patient's BUN and creatinine had resolved to 14/1.91. The patient had a better understanding of administering his insulin and Accu-Chek. Diagram was drawn for the patient for his day-to-day insulin schedule and the patient acknowledged understanding. The patient will be set up with home health for medication administration. The patient also has a sister, who lives 20 minutes away, who is going to help the patient with the medications. The patient was also counseled on smoking cessation. DISPOSITION: Stable. DISCHARGE INSTRUCTIONS: 1. Location: Home with home health for medication administration. 2. Activity: Ad samm. 3. Diet: Consistent carbohydrate. 4. Followup: Follow up with PCP within 3 days. Job ID: [id number]
== END 2018-11-20 11:53 | disposition home health service (06) | DRG 638 ==
LOC: ERS 10:46 → ERHOLD 13:14 → IMCU/EMU 16:28 → T4-A 11-16 12:45
PROVIDERS: ADMIT Family Medicine; ATTEND Family Medicine
DX: E11.00 Type 2 diabetes mellitus with hyperosmolarity without nonketotic hyperglycemic-hyperosmolar coma (NKHHC) (principal); N17.9 Acute kidney failure, unspecified; I10 Essential (primary) hypertension; E78.5 Hyperlipidemia, unspecified; R00.1 Bradycardia, unspecified; I95.9 Hypotension, unspecified; F17.210 Nicotine dependence, cigarettes, uncomplicated; Z79.4 Long term (current) use of insulin
CPT/HCPCS: 36415; 36416; 71045; 76770; 80048; 80053; 81003; 82010; 82550; 82570; 83036; 83690; 83735; 84100; 84300; 84540; 85025; 86140; 87086; 93005; 96361; 96374; J1644; J1815; J1940; J3480; J7050; J7120

== ENCOUNTER 2019-05-22 10:14 | Outpatient (CLI) | payer MEDICARE ==
--- NOTE | 2019-05-22 12:07 | ULT ---
US Renal Bilateral STANDARD History: An 18.3. Chronic renal disease. Comparison: Renal ultrasound October 2018 Findings: Real-time grayscale and color evaluation of the kidneys and urinary bladder was performed. Right kidney measures 13.1 x 6.1 x 5.2 cm the left kidney measures 10.3 x 4.2 x 4 cm. Prevoid urinary bladder volume is 94 mm post void residual is 0. No renal mass, hydronephrosis, nor abnormal calcifications. Impression: No evidence for obstructive uropathy.
== END 2019-05-22 10:15 | disposition home or self-care (01) ==
LOC: BICULT 10:14
PROVIDERS: ATTEND Internal Medicine Nephrology
DX: N18.3 Chronic kidney disease, stage 3 (moderate) (principal)
CPT/HCPCS: 76770